=== PATIENT | female | born 1955 | race Caucasian/White ===

== ENCOUNTER 2016-12-25 15:26 | Emergency (ER) | payer OTHER ==
[2016-12-25 15:32] VITALS: BP 147/94; BMI 28.4
--- NOTE | 2016-12-25 15:59 | PDOC ---
History of Present Illness - General Chief Complaint: Cold Symptoms Stated Complaint: CONGESTION Time Seen by Provider: 12/25/16 15:47 - History of Present Illness Initial Comments: 12/25/16 15:59 CHIEF COMPLAINT: HISTORY OF PRESENT ILLNESS: No recent travel or sick contacts. PAST MEDICAL HISTORY: Denies past medical history FAMILY HISTORY: Denies SOCIAL HISTORY: Lives at home with ____. Occupation: . Denies tobacco, alcohol, illicit drug use. SURGICAL HISTORY: Denies ALLERGIES: No known drug allergies REVIEW OF SYSTEMS General/Constitutional: Denies fever or chills. Denies weakness, weight change. HEENT: Denies change in vision. Denies ear pain or discharge. Denies sore throat. Cardiovascular: Denies chest pain or shortness of breath. Respiratory: Denies cough, wheezing, or hemoptysis. Gastrointestinal: Denies nausea, vomiting, diarrhea or constipation. Denies rectal bleeding. Genitourinary: Denies dysuria, frequency, or change in urination. Musculoskeletal: Denies joint or muscle swelling or pain. Denies neck or back pain. Skin and breasts: Denies rash or easy bruising. Neurologic: Denies headache, vertigo, loss of consciousness, or loss of sensation. Psychiatric: Denies depression or anxiety. Endocrine: Denies increased thirst. Denies abnormal weight change. Hematologic/Lymphatic: Denies anemia, easy bleeding, or history of blood clots. Allergic/Immunologic: Denies hives or skin allergy. Denies latex allergy. PHYSICAL EXAM General Appearance: Well-appearing, appropriately dressed. No apparent distress , no intoxication. HEENT: EOMI, PERRLA, normal ENT inspection, normal voice, TMs normal, pharynx normal. No conjunctival pallor. No photophobia, scleral icterus. Neck: Supple. Trachea midline. No tenderness, rigidity, carotid bruit, stridor , lymphadenopathy, or thyromegaly. Respiratory/Chest: Lungs CTAB. No shortness of breath, chest tenderness, respiratory distress, accessory muscle use. No crackles, rales, rhonchi, stridor , wheezing, dullness Cardiovascular: RRR. S1, S2. No JVD, murmur, bradycardia, tachycardia. Vascular Pulses: Dorsalis-Pedis (R): 2+, Dorsalis-Pedis (L): 2+ Gastrointestinal/Abdominal: Normal bowel sounds. Abdomen soft, non-distended. No tenderness or rebound tenderness. No organomegaly, pulsatile mass, guarding , hernia, hepatomegaly, splenomegaly. Lymphatic: No adenopathy, tenderness. Musculoskeletal/Extremities: Normal inspection. FROM of all extremities, normal capillary refill. Pelvis Stable. No CVA tenderness. No tenderness to extremities, pedal edema, swelling, erythema or deformity. Integumentary: Appropriate color, dry, warm. 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 Fully oriented, alert. Appropriate mood/affect. Motor strength 5/5. No appreciable EOM palsy, facial droop or sensory deficit. Past History - Past Medical History Allergies/Adverse Reactions: Allergies Allergy/AdvReac Type Severity Reaction Status Date / Time No Known Allergies Allergy Verified 09/09/15 15:22 Home Medications: Ambulatory Orders Amlodipine Besylate 10 mg PO DAILY 09/09/15 Pravastatin Sodium 20 mg PO DAILY 09/09/15 Amoxicillin - [Amoxicillin 500mg Capsule -] 500 mg PO BID 12/25/16 Guaifenesin [Siltussin SA] 100 mg PO TID 12/25/16 Anemia: No Asthma: No Cancer: No Cardiac Disorders: No CVA: No COPD: No CHF: No Dementia: No Diabetes: No GI Disorders: No Disorders: No HTN: Yes Hypercholesterolemia: Yes Liver Disease: No Seizures: No Thyroid Disease: No - Surgical History Abdominal Surgery: Yes Appendectomy: No Cardiac Surgery: No Cholecystectomy: No Lung Surgery: No Neurologic Surgery: No Orthopedic Surgery: No - Suicide/Smoking/Psychosocial Hx Smoking History: Never smoked Have you smoked in the past 12 months: No Hx Alcohol Use: No Drug/Substance Use Hx: No Substance Use Type: None Hx Substance Use Treatment: No *Physical Exam - Vital Signs Last Vital Signs Temp Pulse Resp BP Pulse Ox 99 F 93 H 18 147/94 99 12/25/16 15:30 12/25/16 15:30 12/25/16 15:30 12/25/16 15:30 12/25/16 15:30
--- NOTE | 2016-12-25 16:02 | PDOC ---
History of Present Illness - General Chief Complaint: Cold Symptoms Stated Complaint: CONGESTION Time Seen by Provider: 12/25/16 15:47 - History of Present Illness Initial Comments: 12/25/16 16:00 CHIEF COMPLAINT: cough, congestion HISTORY OF PRESENT ILLNESS: 61 yo F with hx of HTN and HLD presents to [facility] with cough and sneezing x 4-5 days. Patient reports she received a flu shot approximately two weeks ago and then developed these symptoms. She denies any fever, chills, nausea, vomiting, diarrhea. No recent travel or sick contacts. PAST MEDICAL HISTORY: Denies past medical history FAMILY HISTORY: Denies SOCIAL HISTORY: Denies tobacco, alcohol, illicit drug use. SURGICAL HISTORY: Denies ALLERGIES: No known drug allergies REVIEW OF SYSTEMS General/Constitutional: Denies fever or chills. Denies weakness, weight change. HEENT: Denies change in vision. Denies ear pain or discharge. Denies sore throat. Cardiovascular: Denies chest pain or shortness of breath. Respiratory: Productive cough x 4-5 days. Denies wheezing, or hemoptysis. Gastrointestinal: Denies nausea, vomiting, diarrhea or constipation. Denies rectal bleeding. Genitourinary: Denies dysuria, frequency, or change in urination. Musculoskeletal: Denies joint or muscle swelling or pain. Denies neck or back pain. Skin and breasts: Denies rash or easy bruising. PHYSICAL EXAM General Appearance: Well-appearing, appropriately dressed. No apparent distress , no intoxication. HEENT: Nasal congestion, rhinorrhea, post nasal drip appreciated. EOMI, PERRLA, normal ENT inspection, normal voice, TMs normal, pharynx normal. No conjunctival pallor. No photophobia, scleral icterus. Neck: Supple. Trachea midline. No tenderness, rigidity, carotid bruit, stridor , lymphadenopathy, or thyromegaly. Respiratory/Chest: Lungs CTAB. No shortness of breath, chest tenderness, respiratory distress, accessory muscle use. No crackles, rales, rhonchi, stridor , wheezing, dullness Cardiovascular: RRR. S1, S2. No JVD, murmur, bradycardia, tachycardia. Gastrointestinal/Abdominal: Normal bowel sounds. Abdomen soft, non-distended. No tenderness or rebound tenderness. No organomegaly, pulsatile mass, guarding , hernia, hepatomegaly, splenomegaly. Musculoskeletal/Extremities: Normal inspection. FROM of all extremities, normal capillary refill. Pelvis Stable. No CVA tenderness. No tenderness to extremities, pedal edema, swelling, erythema or deformity. Integumentary: Appropriate color, dry, warm. 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 Fully oriented, alert. Appropriate mood/affect. Motor strength 5/5. No appreciable EOM palsy, facial droop or sensory deficit. Past History - Past Medical History Allergies/Adverse Reactions: Allergies Allergy/AdvReac Type Severity Reaction Status Date / Time No Known Allergies Allergy Verified 09/09/15 15:22 Home Medications: Ambulatory Orders Amlodipine Besylate 10 mg PO DAILY 09/09/15 Pravastatin Sodium 20 mg PO DAILY 09/09/15 Amoxicillin - [Amoxicillin 500mg Capsule -] 500 mg PO BID 12/25/16 Azithromycin [Zithromax 250mg Tablets -] 250 mg PO ASDIR #6 tab 12/25/16 Dextromethorphan HBr [Robafen Cough] 15 mg PO Q6H PRN #28 capsule 12/25/16 Guaifenesin [Siltussin SA] 100 mg PO TID 12/25/16 Pseudoephedrine HCl [Sudafed 12 Hour] 120 mg PO BID PRN #14 tablet.er 12/25/16 Anemia: No Asthma: No Cancer: No Cardiac Disorders: No CVA: No COPD: No CHF: No Dementia: No Diabetes: No GI Disorders: No Disorders: No HTN: Yes Hypercholesterolemia: Yes Liver Disease: No Seizures: No Thyroid Disease: No - Surgical History Abdominal Surgery: Yes Appendectomy: No Cardiac Surgery: No Cholecystectomy: No Lung Surgery: No Neurologic Surgery: No Orthopedic Surgery: No - Suicide/Smoking/Psychosocial Hx Smoking History: Never smoked Have you smoked in the past 12 months: No Hx Alcohol Use: No Drug/Substance Use Hx: No Substance Use Type: None Hx Substance Use Treatment: No *Physical Exam - Vital Signs Last Vital Signs Temp Pulse Resp BP Pulse Ox 99 F 93 H 18 147/94 99 12/25/16 15:30 12/25/16 15:30 12/25/16 15:30 12/25/16 15:30 12/25/16 15:30 Medical Decision Making - Medical Decision Making 12/25/16 16:01 61 yo F with hx of HTN and HLD presents to [facility] with cough and sneezing x 4-5 days. VS notable for HR 93. *DC/Admit/Observation/Transfer Diagnosis at time of Disposition: Bronchitis - Discharge Dispostion Disposition: HOME Condition at time of disposition: Stable Admit: No - Prescriptions Prescriptions: Dextromethorphan HBr [Robafen Cough] 15 mg PO Q6H PRN #28 capsule PRN Reason: Cough Pseudoephedrine HCl [Sudafed 12 Hour] 120 mg PO BID PRN #14 tablet.er PRN Reason: congestion Azithromycin [Zithromax 250mg Tablets -] 250 mg PO ASDIR #6 tab - Referrals Referrals: Trey Chavez MD [Primary Care Provider] - - Patient Instructions Printed Discharge Instructions: DI for Acute Bronchitis Additional Instructions: Please take medications as prescribed; you may discontinue the other medications previously prescribed. Complete the ENTIRE course of antibiotics, even if your symptoms improve. If you develop any fever, chills, vomiting, diarrhea, or any new or worsening symptoms, please return to the ER.
[2016-12-25] MEDS ORDERED: IBUPROFEN 600 MG TABLET (FP) PO ONE ×2 (16:15→16:17)
[2016-12-25 16:56] VITALS: PULSE 91; TEMP 98.1
== END 2016-12-25 16:56 | disposition home or self-care (01) ==
LOC: JERFT 15:26
DX: J20.9 Acute bronchitis, unspecified (principal); I10 Essential (primary) hypertension; E78.00 Pure hypercholesterolemia, unspecified
CPT/HCPCS: 87804; 99281-25

== ENCOUNTER 2018-08-02 08:29 | Emergency (ER) | payer OTHER ==
[2018-08-02 08:43] VITALS: BP 146/86; PULSE 90; TEMP 98.4; BMI 27.2
[2018-08-02] MEDS ORDERED: predniSONE 20 MG TABLET (UD) PO ONE (09:15)
[2018-08-02] MEDS ORDERED: ALBUTEROL SO4 2.5/IPRATROPIUM 0.5 INH SOL 3 ML VIAL.NEB. NEB ONE ×4 (09:15→09:45)
[2018-08-02] MEDS ORDERED: predniSONE 20 MG TABLET (UD) ONE (09:18)
--- NOTE | 2018-08-02 09:20 | PDOC ---
History of Present Illness - General Chief Complaint: Cold Symptoms Stated Complaint: COUGHING Time Seen by Provider: 08/02/18 09:14 History Source: Patient, Family Exam Limitations: No Limitations - History of Present Illness Initial Comments: 08/02/18 09:16 Patient here with persistent cough PMD 2, started azithromycin yesterday, is using albuterol pump, and cetirizine but not taking regularly Timing/Duration: reports: getting worse Severity: reports: moderate, severe Modifying Factors: improves with: albuterol inhaler, antibiotics, coughing Associated Symptoms: reports: cough, dizziness, fever/chills, nasal congestion, nasal drainage Past History - Travel Traveled outside of the country in the last 30 days: No Close contact w/someone who was outside of country & ill: No - Past Medical History Allergies/Adverse Reactions: Allergies Allergy/AdvReac Type Severity Reaction Status Date / Time No Known Allergies Allergy Verified 08/02/18 08:43 Home Medications: Ambulatory Orders Amlodipine Besylate 10 mg PO DAILY 09/09/15 Pravastatin Sodium 20 mg PO DAILY 09/09/15 Amoxicillin - [Amoxicillin 500mg Capsule -] 500 mg PO BID 12/25/16 Azithromycin [Zithromax 250mg Tablets -] 250 mg PO ASDIR #6 tab 12/25/16 Dextromethorphan HBr [Robafen Cough] 15 mg PO Q6H PRN #28 capsule 12/25/16 Guaifenesin [Siltussin SA] 100 mg PO TID 12/25/16 Pseudoephedrine HCl [Sudafed 12 Hour] 120 mg PO BID PRN #14 tablet.er 12/25/16 predniSONE [Deltasone -] 20 mg PO BID #8 tablet 08/02/18 Anemia: No Asthma: No Cancer: No Cardiac Disorders: No CVA: No COPD: No CHF: No Dementia: No Diabetes: No GI Disorders: No Disorders: No HTN: Yes Hypercholesterolemia: Yes Liver Disease: No Seizures: No Thyroid Disease: No - Surgical History Abdominal Surgery: (fibroids removed) Appendectomy: No Cardiac Surgery: No Cholecystectomy: No Lung Surgery: No Neurologic Surgery: No Orthopedic Surgery: No - Suicide/Smoking/Psychosocial Hx Smoking History: Current every day smoker Have you smoked in the past 12 months: No Information on smoking cessation initiated: No Hx Alcohol Use: Yes (occasionally) Drug/Substance Use Hx: No Substance Use Type: None Hx Substance Use Treatment: No Review of Systems - Review of Systems Able to Perform ROS?: Yes Is the patient limited Greek proficient: Yes Constitutional: Yes: Symptoms Reported, See HPI, Malaise. No: Chills, Fever HEENTM: Yes: See HPI. No: Symptoms Reported Respiratory: Yes: See HPI, Cough, Shortness of Breath, Wheezing *Physical Exam - Vital Signs Last Vital Signs Temp Pulse Resp BP Pulse Ox 98.4 F 90 16 146/86 95 08/02/18 08:39 08/02/18 08:39 08/02/18 08:39 08/02/18 08:39 08/02/18 08:39 - Physical Exam General Appearance: Yes: Nourished, Appropriately Dressed, Apparent Distress, Mild Distress HEENT: positive: JAYASHREE, Normal Voice, Pharynx Normal, Tonsillar Erythema, Rhinorrhea. negative: TMs Normal Neck: positive: Supple. negative: Tender, Lymphadenopathy (R), Lymphadenopathy (L) Respiratory/Chest: positive: Lungs Clear (coarse but clear, deep inspiration provokes moist cough). negative: Normal Breath Sounds Cardiovascular: positive: Regular Rate Musculoskeletal: positive: Normal Inspection Extremity: positive: Normal Capillary Refill, Normal Inspection. negative: Tender Integumentary: positive: Normal Color, Dry, Warm, Pale Neurologic: positive: pharmacy aide II-XII NML intact, Fully Oriented, Alert, Normal Mood/ Affect, Normal Response, Motor Strength 5/5 Progress Note - Progress Note Progress Note: Bronchitis, early taking Z-Lalit, albuterol pumps, and antihistamines however persistent wheezing cough. Will provide DuoNeb's here and prednisone and reevaluate Medical Decision Making - Medical Decision Making 08/02/18 *DC/Admit/Observation/Transfer Diagnosis at time of Disposition: Acute bronchitis Qualifiers: Bronchitis organism: unspecified organism Qualified Code(s): J20.9 - Acute bronchitis, unspecified - Discharge Dispostion Disposition: HOME Decision to Admit order: No - Prescriptions Prescriptions: predniSONE [Deltasone -] 20 mg PO BID #8 tablet - Referrals Referrals: Farzana Guadarrama, [employer] [Primary Care Provider] - - Patient Instructions Printed Discharge Instructions: DI for Acute Bronchitis Additional Instructions: Rest, drink lots of fluids: Teas, water, soups, Pedialyte Saltwater gargles Steamy showers/seem to face break up mucus Avoid contact with others until fevers and cough resolved Lots of handwashing and good hygiene Continue [id number] medications for symptomatic relief Tylenol or Motrin for fever and pain Continue albuterol nebulizers every 4-6 hours for the next 2 days then as needed for continued cough Prednisone as directed until completed continue azithromycin as directed until completed, continue cetirizine daily until ALLERGY season is finished Followup with private physician in one to 2 days Return to emergency department / pediatric hospital for worsened symptoms, fevers, dehydration - Post Discharge Activity
== END 2018-08-02 10:28 | disposition home or self-care (01) ==
LOC: JERFT 08:29
PROC: 3E0F7GC Introduction of Other Therapeutic Substance into Respiratory Tract, Via Natural or Artificial Opening (ICD-10-PCS; principal; 2018-08-02)
PROC: 3E0F7GC Introduction of Other Therapeutic Substance into Respiratory Tract, Via Natural or Artificial Opening (ICD-10-PCS; 2018-08-02)
DX: J20.9 Acute bronchitis, unspecified (principal); I10 Essential (primary) hypertension; E78.00 Pure hypercholesterolemia, unspecified
CPT/HCPCS: 99281-25

== ENCOUNTER 2019-02-24 09:05 | Emergency (ER) | payer MEDICARE, OTHER ==
[2019-02-24 09:11] VITALS: BP 147/96; PULSE 87; TEMP 98.5; BMI 28.3
--- NOTE | 2019-02-24 09:23 | PDOC ---
History of Present Illness - General Chief Complaint: Sore Throat Stated Complaint: SORE THROAT Time Seen by Provider: 02/24/19 09:17 History Source: Patient, Family (daughter Donna translated for [place]) Exam Limitations: No Limitations - History of Present Illness Associated Symptoms: denies: cough, fever/chills, loss of appetite, shortness of breath Past History - Travel Traveled outside of the country in the last 30 days: No Close contact w/someone who was outside of country & ill: No - Past Medical History Allergies/Adverse Reactions: Allergies Allergy/AdvReac Type Severity Reaction Status Date / Time No Known Allergies Allergy Verified 02/24/19 09:11 Home Medications: Ambulatory Orders Amlodipine Besylate 10 mg PO DAILY 09/09/15 Pravastatin Sodium 20 mg PO DAILY 09/09/15 Amoxicillin - [Amoxicillin 500mg Capsule -] 500 mg PO BID 12/25/16 Azithromycin [Zithromax 250mg Tablets -] 250 mg PO ASDIR #6 tab 12/25/16 Dextromethorphan HBr [Robafen Cough] 15 mg PO Q6H PRN #28 capsule 12/25/16 Guaifenesin [Siltussin SA] 100 mg PO TID 12/25/16 Pseudoephedrine HCl [Sudafed 12 Hour] 120 mg PO BID PRN #14 tablet.er 12/25/16 predniSONE [Deltasone -] 20 mg PO BID #8 tablet 08/02/18 Ibuprofen 800 mg PO ACDIN 7 Days #30 tablet 02/24/19 Anemia: No Asthma: No Cancer: No Cardiac Disorders: No CVA: No COPD: No CHF: No Dementia: No Diabetes: No GI Disorders: No Disorders: No HTN: Yes Hypercholesterolemia: Yes Liver Disease: No Seizures: No Thyroid Disease: No - Surgical History Abdominal Surgery: (fibroids removed) Appendectomy: No Cardiac Surgery: No Cholecystectomy: No Lung Surgery: No Neurologic Surgery: No Orthopedic Surgery: No - Psycho Social/Smoking Cessation Hx Smoking History: Never smoked Have you smoked in the past 12 months: No Hx Alcohol Use: Yes (occasionally) Drug/Substance Use Hx: No Substance Use Type: None Hx Substance Use Treatment: No Review of Systems - Review of Systems Constitutional: No: Chills, Fever HEENTM: Yes: Throat Pain. No: Ear Pain, Ear Discharge, Tinnitus, Nose Bleeding , Throat Swelling Respiratory: No: Cough, Shortness of Breath Cardiac (ROS): No: Chest Pain, Palpitations Neurological: No: Headache *Physical Exam - Vital Signs Last Vital Signs Temp Pulse Resp BP Pulse Ox 98.5 F 87 18 147/96 99 02/24/19 09:08 02/24/19 09:08 02/24/19 09:08 02/24/19 09:08 02/24/19 09:08 - Physical Exam General Appearance: Yes: Nourished HEENT: positive: EOMI, JAYASHREE, TMs Normal, Pharyngeal Erythema. 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 Patient is accompanied by daughter Donna who translated from [place]. Patient denies cough, drooling, shortness of breath, fever, chills Discharge - Discharge Information Problems reviewed: Yes Clinical Impression/Diagnosis: Sore throat Condition: Stable Disposition: HOME - Admission No - Additional Discharge Information Prescriptions: Ibuprofen 800 mg PO ACDIN 7 Days #30 tablet Prescription Drug Monitoring Program (I-STOP) results: I-STOP not reviewed - Follow up/Referral Referrals: Anni Gan MD [Primary Care Provider] - - Patient Discharge Instructions Patient Printed Discharge Instructions: Strep Throat Additional Instructions: Your rapid strep was negative today. A culture was sent out if positive you will be contacted for antibiotics Please take Motrin as needed for pain. Gargle with salt warm water. Return to the emergency room if worsening symptoms occur - Post Discharge Activity
== END 2019-02-24 10:15 | disposition home or self-care (01) ==
LOC: JERFT 09:05
DX: J02.9 Acute pharyngitis, unspecified (principal); I10 Essential (primary) hypertension; E78.00 Pure hypercholesterolemia, unspecified
CPT/HCPCS: 87070; 87880; 99281-25

== ENCOUNTER 2020-10-22 18:29 | Emergency (ER) | payer OTHER ==
[2020-10-22 18:36] VITALS: BP 150/91; PULSE 96; TEMP 98.4; BMI 29.6
[2020-10-22] MEDS ORDERED: FAMOTIDINE 20 MG TABLET PO ONE (20:28)
[2020-10-22] MEDS ORDERED: predniSONE 20 MG TABLET (UD) PO ONE (20:28)
[2020-10-22] MEDS ORDERED: DIPHENHYDRAMINE HCL 25 MG/10 ML CUP PO ONE (20:31)
[2020-10-22] MEDS ORDERED: predniSONE 20 MG TABLET (UD) ONE (21:24)
[2020-10-22] MEDS ORDERED: diphenhydrAMINE HCL 25 MG CAPSULE (FP) PO ONE (21:25)
[2020-10-22] MEDS ORDERED: FAMOTIDINE 20 MG TABLET ONE (21:25)
== END 2020-10-22 21:32 | disposition home or self-care (01) ==
LOC: JER 18:29
DX: R21 Rash and other nonspecific skin eruption (principal)
CPT/HCPCS: 99284-25

== ENCOUNTER 2020-11-10 12:27 | Emergency (ER) | payer OTHER ==
[2020-11-10 12:56] VITALS: BP 133/85; PULSE 86; TEMP 99.3; BMI 26.6
[2020-11-10] MEDS ORDERED: FAMOTIDINE 20 MG TABLET PO ONE (13:23)
[2020-11-10] MEDS ORDERED: DEXAMETHASONE SOD PHOSPHATE 10 MG/1 ML VIAL IM ONE (13:23)
[2020-11-10] MEDS ORDERED: DEXAMETHASONE SOD PHOSPHATE 10 MG/1 ML VIAL ONE (14:13)
[2020-11-10] MEDS ORDERED: FAMOTIDINE 20 MG TABLET ONE (14:13)
== END 2020-11-10 15:21 | disposition home or self-care (01) ==
LOC: JERFT 12:27
PROC: 3E023GC Introduction of Other Therapeutic Substance into Muscle, Percutaneous Approach (ICD-10-PCS; principal; 2020-11-10)
DX: L23.9 Allergic contact dermatitis, unspecified cause (principal)
CPT/HCPCS: 99284-25; J1100